=== PATIENT | female | born 2000 | race Two or more races ===

== ENCOUNTER 2021-01-17 16:32 | Emergency (ER) | payer OTHER ==
[~2021-01-17] VITALS: Ht 149.9 cm; Wt 47.2 kg
[2021-01-17] MEDS ORDERED: MIRALAX17 GM (16:49)
== END 2021-01-17 20:15 | disposition home or self-care (01) ==
LOC: ER 16:32
DX: E03.8 Other specified hypothyroidism (principal); F06.4 Anxiety disorder due to known physiological condition; R00.2 Palpitations

== ENCOUNTER 2021-11-23 01:44 | Emergency (ER) | payer OTHER ==
[~2021-11-23] VITALS: Ht 149.9 cm; Wt 49.4 kg
[~2021-11-23 01:44] MED LIST: MIRALAX17 GM
== END 2021-11-23 03:57 | disposition home or self-care (01) ==
LOC: ER 01:44
DX: N83.202 Unspecified ovarian cyst, left side (principal)

== ENCOUNTER 2023-08-29 14:25 | Emergency (ER) | payer OTHER ==
[~2023-08-29] VITALS: Ht 149.9 cm; Wt 50.8 kg
[2023-08-29] MEDS ORDERED: LEVOTHYROXINE25 MCG PO (14:46)
[2023-08-29] MEDS ORDERED: DICLOFENAC SODI75 MG PO (18:58)
== END 2023-08-29 19:34 | disposition home or self-care (01) ==
LOC: ER 14:25
DX: S60.012A Contusion of left thumb without damage to nail, initial encounter (principal); X58.XXXA Exposure to other specified factors, initial encounter; Y93.9 Activity, unspecified; Y92.9 Unspecified place or not applicable; Y99.9 Unspecified external cause status

== ENCOUNTER 2023-09-15 09:32 | Outpatient (CLI) | payer OTHER ==
[~2023-09-15 09:32] MED LIST changes: +DICLOFENAC SODI75 MG PO; +LEVOTHYROXINE25 MCG PO
== END 2023-09-15 09:43 | disposition home or self-care (01) ==
LOC: RAD 09:32
PROVIDERS: ATTEND Orthopaedic Surgery
DX: S67.02XA Crushing injury of left thumb, initial encounter (principal)

== ENCOUNTER 2023-12-09 10:24 | Emergency (ER) | payer OTHER ==
[~2023-12-09] VITALS: Ht 149.9 cm; Wt 50.8 kg
[2023-12-09] MEDS ORDERED: ACETAMINOPHEN 500 MG GEL..CAP PO ONE (15:15)
[2023-12-09 15:21] LABS: HEMATOCRIT 38.8 % (36.0-45.00); HEMOGLOBIN 13.5 g/dL (12.0-15.00); MEAN CELL VOLUME 85.6 fL (80.00-100.00); MEAN CORPUSCULAR HEMOGLOBIN 29.7 pg (27.00-32.0); MEAN CORPUSCULAR HGB CONC 34.7 g/dl (32.0-36.0); PLATELET COUNT 304 K/uL (150-450); RED BLOOD COUNT 4.53 M/uL (4.00-6.00); RED CELL DISTRIBUTION WIDTH 13.1 % (11.5-14.5)
[2023-12-09 16:04] LABS: CALCIUM 9.9 mg/dL (8.5-10.1); CREATININE SERUM 0.73 mg/dL (0.55-1.02); GFR 97.14; POTASSIUM 4.2 mEq/L (3.5-5.1)
[2023-12-09 16:09] LABS: URINE APPEARANCE Clear; URINE BILIRRUBIN Negative (NEGATIVE); URINE BLOOD Negative; URINE COLOR Yellow; URINE GLUCOSE Negative (NEGATIVE); URINE LEUKOCYTE Trace; URINE NITRATE Negative; URINE PROTEIN Negative (NEGATIVE); URINE UROBILINOGEN 0.2 E.U./dl
[2023-12-09 16:12] LABS: URINE BACTERIA 1733.5 uL (0.0-1933); URINE EPITHELIAL CELLS 22.8 uL (0.0-38.8); URINE WBC 55.8 uL (0.0-23.2)
[2023-12-09] MEDS ORDERED: DEXAMETHASONE SODIUM PHOSPHATE 4 MG/ML VIAL IM ONE (17:15)
== END 2023-12-09 18:25 | disposition home or self-care (01) ==
LOC: ER 10:24
PROVIDERS: Nurse Practitioner Family
DX: E03.9 Hypothyroidism, unspecified (principal); J06.9 Acute upper respiratory infection, unspecified; Z20.822 Contact with and (suspected) exposure to COVID-19